=== PATIENT | female | born 1985 | race Caucasian/White ===

== ENCOUNTER 2020-08-08 19:41 | Emergency (ER) | payer OTHER ==
[2020-08-08] MEDS ORDERED: NA CHLORIDE 0.9% 1,000 ML ONE (20:44)
[2020-08-08] MEDS ORDERED: ONDANSETRON 4 MG/2 ML VIAL ONE (20:44)
[2020-08-08 20:48] LABS: Absolute Lymphocytes (CBC) 1.3 K/uL (0.7-4.9); Basophils % 0.4 % (0-1.3); Hematocrit 35.7 % (36.0-45.0); Lymphocytes % 13.6 % (15.3-44.8); MPV 9.2 fL (7.6-11.3); RBC Red Blood Cell Count 4.23 M/uL (3.86-4.86)
[2020-08-08 20:58] LABS: Protime INR 0.92
--- NOTE | 2020-08-08 20:59 | RAD REPORT ---
EXAM DESCRIPTION: Mari Single View08/08/2020 8:52 pm CLINICAL HISTORY: Abdominal pain COMPARISON: 2011 FINDINGS: The lungs appear clear of acute infiltrate. The heart is normal size IMPRESSION: No acute abnormalities displayed
[2020-08-08 21:08] LABS: ALT/SGPT 18 U/L (12-78); AST/SGOT 14 U/L (15-37); Alkaline Phosphatase 52 U/L (45-117); BUN Blood Urea Nitrogen 10 mg/dL (7-18); Bicarbonate 26 mmol/L (21-32); Bilirubin Direct < 0.1 mg/dL (0-0.2); Bilirubin Total 0.2 mg/dL (0.2-1.0); Glucose Level 95 mg/dL (74-106); Magnesium 2.4 mg/dL (1.8-2.4); NT PRO-BNP 67 pg/mL (<125); Potassium 4.3 mmol/L (3.5-5.1); Protein, Total 6.7 g/dL (6.4-8.2); Sodium Level 140 mmol/L (136-145); Troponin (Emerg Dept Use Only) < 0.02 ng/mL (0.0-0.045)
[2020-08-08 22:23] LABS: Urine Blood 3+ (Negative); Urine Glucose NEGATIVE (Negative); Urine Protein NEGATIVE (NEG); Urine Specific Gravity 1.015 (1.005-1.030); Urine Specific Gravity/Preg 1.015 (1.005-1.030)
[2020-08-08] MEDS ORDERED: METHYLPREDNISOLONE 125 MG INJ ONE (23:01)
[2020-08-08] MEDS ORDERED: FAMOTIDINE 20 MG/2 ML VIAL IV ONE (23:01)
[2020-08-08] MEDS ORDERED: DIPHENHYDRAMINE 50 MG/ML VIAL ONE (23:03)
--- NOTE | 2020-08-08 23:40 | ER ---
Nurse's Notes [facility] Name: Leilani De LaP az Age: 35 yrs Sex: Female : 1985 Arrival Date: 08/08/2020 Time: 19:42 Bed 15 Private MD: Diagnosis: Syncope and collapse;Rash, s/p IV contrast Presentation: 08/08 19:58 Chief complaint: Patient states: R lower abd pain for 1 day. Had surgery (tubal ll1 reversal) . States the pain came on suddenly today, and she passed out. No fall, ex caught her. Just not feeling right since incident. Coronavirus screen: Client denies travel out of the [place] in the last 14 days. At this time, the client does not indicate any symptoms associated with coronavirus-19. Ebola Screen: Patient denies travel to an Ebola-affected area in the 21 days before illness onset. Initial Sepsis Screen: Does the patient meet any 2 criteria? HR > 90 bpm. No. Patient's initial sepsis screen is negative. Does the patient have a suspected source of infection? Yes: Acute abdominal pain. Risk Assessment: Do you want to hurt yourself or someone else? Patient reports no desire to harm self or others. Onset of symptoms was August 08, 2020. 19:58 Method Of Arrival: Ambulatory ll1 19:58 Acuity: JACQUELINE 2 ll1 Historical: - Allergies: 20:02 No Known Allergies; ll1 - PMHx: 20:02 None; ll1 - PSHx: 20:02 Appendectomy; Cholecystectomy; right knee surgery; ovarian cyst removal; Tubal ll1 ligation; vertical sleeve; - Immunization history:: Flu vaccine is not up to date. - Social history:: Smoking status: Patient denies any tobacco usage or history of. Screenin:23 Abuse screen: Denies threats or abuse. Nutritional screening: No deficits noted. vg1 Tuberculosis screening: No symptoms or risk factors identified. Fall Risk Fall in past 12 months (25 points). No secondary diagnosis (0 pts). IV access (20 points). Ambulatory Aid- None/Bed Rest/Nurse Assist (0 pts). Gait- Normal/Bed Rest/Wheelchair (0 pts) Mental Status- Oriented to own ability (0 pts). Total Martínez Fall Scale indicates High Risk Score (45 or more points). Fall prevention measures have been instituted. Side Rails Up X 2 Placed Close to Nursing Station. Assessment: 20:20 General: Appears in no apparent distress. comfortable, Behavior is calm, cooperative. vg1 Pain: Complains of pain in right lower quadrant Pain currently is 6 out of 10 on a pain scale. Pain began 1 hour ago. Neuro: Level of Consciousness is awake, alert, obeys commands, Oriented to person, place, time, situation. Neuro: Reports dizziness, since today. Cardiovascular: Patient's skin is warm and dry. Respiratory: Airway is patent Respiratory effort is even, unlabored. GI: Reports nausea, Patient currently denies diarrhea, vomiting. : No signs and/or symptoms were reported regarding the genitourinary system. EENT: No signs and/or symptoms were reported regarding the EENT system. Derm: Surgical incision intact, no bleeding noted. Musculoskeletal: Circulation, motion, and sensation intact. 21:08 Reassessment: Critical results received from Rhea in outside lab, D dimer 1260. vg1 22:06 Reassessment: Patient appears in no apparent distress at this time. No changes from vg1 previously documented assessment. Patient and/or family updated on plan of care and expected duration. Pain level reassessed. Patient is alert, oriented x 3, equal unlabored respirations, skin warm/dry/pink. Vital Signs: 19:58 BP 100 / 69; Pulse 94; Resp 17; Temp 98.6; Pulse Ox 100% ; Weight 83.91 kg; Height 5 ll1 ft. 4 in. (162.56 cm); Pain 7/10; 20:23 BP 95 / 68; Pulse 88; Resp 16; Pulse Ox 100% on R/A; vg1 21:00 BP 100 / 40; Pulse 83; Resp 14; Pulse Ox 100% on R/A; vg1 22:00 BP 115 / 60; Pulse 84; Resp 16; Pulse Ox 100% on R/A; vg1 23:22 BP 93 / 58 Supine; Pulse 72; vg1 23:25 BP 98 / 67 Sitting; Pulse 74; vg1 23:28 BP 91 / 71 Standing; Pulse 90; vg1 19:58 Body Mass Index 31.75 (83.91 kg, 162.56 cm) ll1 ED Course: 19:42 Patient arrived in ED. cf2 20:01 Triage completed. ll1 20:02 Tucker Mireles MD is Attending Physician. 7 20:02 Arm band placed on. ll1 20:08 Elizabeth Davis RN is Primary Nurse. vg1 20:23 Patient has correct armband on for positive identification. Bed in low position. Call vg1 light in reach. Side rails up X 1. 20:30 Inserted saline lock: 20 gauge in right antecubital area, using aseptic technique. rv ,using aseptic technique. Completed by GABRIEL Vidal Blood collected. 20:41 EKG done. vg1 20:52 XRAY Chest (1 view) In Process Unspecified. EDMS 22:10 CT Head Brain wo Cont In Process Unspecified. EDMS 22:11 CT Abd/Pelvis - IV Contrast Only In Process Unspecified. EDMS 22:11 CT Chest For PE Angio In Process Unspecified. EDMS 23:56 No provider procedures requiring assistance completed. IV discontinued, intact, rv bleeding controlled, No redness/swelling at site. Pressure dressing applied. Administered Medications: 20:41 Drug: NS 0.9% 1000 ml Route: IV; Rate: 1000 ml; Site: right antecubital; vg1 23:57 Follow up: IV Status: Completed infusion; IV Intake: 1000ml rv 20:41 Drug: Zofran (Ondansetron) 4 mg Route: IVP; Site: right antecubital; vg1 22:19 Follow up: Response: No adverse reaction; Nausea is decreased vg1 22:55 Drug: Benadryl (diphenhydrAMINE) 50 mg Route: IVP; Site: right antecubital; vg1 23:57 Follow up: Response: No adverse reaction rv 22:55 Drug: SOLU-Medrol 125 mg Route: IVP; Site: right antecubital; vg1 23:56 Follow up: Response: No adverse reaction rv 22:55 Drug: Pepcid (famotidine) 20 mg Route: IVP; Site: right antecubital; vg1 23:56 Follow up: Response: No adverse reaction rv Intake: 23:57 IV: 1000ml; Total: 1000ml. rv Outcome: 23:39 Discharge ordered by . 7 23:56 Discharged to home ambulatory. rv 23:56 Condition: good 23:56 Discharge instructions given to patient, Instructed on discharge instructions, follow up and referral plans. medication usage, Demonstrated understanding of instructions, follow-up care, medications, Prescriptions given X 3. 23:57 Patient left the ED. rv Signatures: Dispatcher [employer] EDMS Enrrique Topete RN RN rv Ronaldo Hernandez cf2 Elizabeth Davis RN RN vg1 Farida Montanez RN RN ll1 Tucker Mireles MD MD mh7 Corrections: (The following items were deleted from the chart) 20:54 20:42 Inserted saline lock: 20 gauge in right antecubital area, using aseptic rv technique. ,using aseptic technique. Completed by GABRIEL Vidal Blood collected. vg1
--- NOTE | 2020-08-08 23:40 | EDPHYS ---
Physician Documentation [facility] Name: Leilani De La Paz Age: 35 yrs Sex: Female : 1985 Arrival Date: 08/08/2020 Time: 19:42 Bed 15 Private MD: ED Physician Tucker Mireles HPI: 08/08 20:43 This 35 yrs old Female presents to ER via Ambulatory with complaints of Post mh7 Surgical Pain, Passed Out Prior To Arrival. 20:43 The patient has experienced syncope, collapsed, lost consciousness. Onset: The mh7 symptoms/episode began/occurred just prior to arrival, today. Duration: This was a single episode, that lasted 1 minute(s). Context: the episode(s) was witnessed, by family, , occurred at home, occurred while the patient was standing, Just prior to the episode the patient experienced dizziness, lightheadedness. Associated injury: The patient did not suffer any apparent associated injury. Associated signs and symptoms: Pertinent positives: abdominal pain, dizziness, lightheadedness, nausea, Pertinent negatives: agitation, ataxia, blurred vision, chest pain, combativeness, confusion, diaphoresis, diarrhea, headache, numbness, palpitations, seizure, shortness of breath, tingling, vertigo, vomiting, weakness. Current symptoms: dizziness. States that she had reversal of tubal ligation 3 days ago. she has had some lower abdominal pain since then. Denies headache, chest pain, SOB, fever, cough, vomiting, diarrhea, dysuria, numbness/tingling, weakness. She admits to decreased appetite and fluid intake since procedure.. Historical: - Allergies: 20:02 No Known Allergies; ll1 - PMHx: 20:02 None; ll1 - PSHx: 20:02 Appendectomy; Cholecystectomy; right knee surgery; ovarian cyst removal; Tubal ll1 ligation; vertical sleeve; - Immunization history:: Flu vaccine is not up to date. - Social history:: Smoking status: Patient denies any tobacco usage or history of. ROS: 20:43 Constitutional: Negative for fever, chills, and weight loss, Eyes: Negative for injury, mh7 pain, redness, and discharge, ENT: Negative for injury, pain, and discharge, Neck: Negative for injury, pain, and swelling, Cardiovascular: Negative for chest pain, palpitations, and edema, Respiratory: Negative for shortness of breath, cough, wheezing, and pleuritic chest pain, Back: Negative for injury and pain, : Negative for injury, bleeding, discharge, and swelling, MS/Extremity: Negative for injury and deformity, Skin: Negative for injury, rash, and discoloration, Psych: Negative for depression, anxiety, suicide ideation, homicidal ideation, and hallucinations, Allergy/Immunology: Negative for hives, rash, and allergies, Endocrine: Negative for neck swelling, polydipsia, polyuria, polyphagia, and marked weight changes, Hematologic/Lymphatic: Negative for swollen nodes, abnormal bleeding, and unusual bruising. Exam: 20:43 Constitutional: This is a well developed, well nourished patient who is awake, alert, mh7 and in no acute distress. Head/Face: Normocephalic, atraumatic. Eyes: Pupils equal round and reactive to light, extra-ocular motions intact. Lids and lashes normal. Conjunctiva and sclera are non-icteric and not injected. Cornea within normal limits. Periorbital areas with no swelling, redness, or edema. Neck: Trachea midline, no thyromegaly or masses palpated, and no cervical lymphadenopathy. Supple, full range of motion without nuchal rigidity, or vertebral point tenderness. No Meningismus. Chest/axilla: Normal chest wall appearance and motion. Nontender with no deformity. No lesions are appreciated. Cardiovascular: Regular rate and rhythm with a normal S1 and S2. No gallops, murmurs, or rubs. Normal PMI, no JVD. No pulse deficits. Respiratory: Lungs have equal breath sounds bilaterally, clear to auscultation and percussion. No rales, rhonchi or wheezes noted. No increased work of breathing, no retractions or nasal flaring. 20:43 Back: No spinal tenderness. No costovertebral tenderness. Full range of motion. Skin: Warm, dry with normal turgor. Normal color with no rashes, no lesions, and no evidence of cellulitis. MS/ Extremity: Pulses equal, no cyanosis. Neurovascular intact. Full, normal range of motion. Neuro: Awake and alert, GCS 15, oriented to person, place, time, and situation. Cranial nerves II-XII grossly intact. Motor strength 5/5 in all extremities. Sensory grossly intact. Cerebellar exam normal. Normal gait. Psych: Awake, alert, with orientation to person, place and time. Behavior, mood, and affect are within normal limits. 20:43 Abdomen/GI: Inspection: scar(s), are noted in the suprapubic area, Bowel sounds: normal, in all quadrants, Palpation: mild abdominal tenderness, in the suprapubic area, mass, is not appreciated, rebound tenderness, is not appreciated, voluntary guarding, is not appreciated, involuntary guarding, is not appreciated, no appreciated organomegaly, Rectal exam: the exam is deferred, because of patient request, Indicators: McBurney's point is not tender, Orozco's sign is negative, Rovsing's sign is negative, Obturator sign is negative, Psoas sign is negative, Liver: no appreciated palpable abnormalities, Hernia: not appreciated. Vital Signs: 19:58 BP 100 / 69; Pulse 94; Resp 17; Temp 98.6; Pulse Ox 100% ; Weight 83.91 kg; Height 5 ll1 ft. 4 in. (162.56 cm); Pain 7/10; 20:23 BP 95 / 68; Pulse 88; Resp 16; Pulse Ox 100% on R/A; vg1 21:00 BP 100 / 40; Pulse 83; Resp 14; Pulse Ox 100% on R/A; vg1 22:00 BP 115 / 60; Pulse 84; Resp 16; Pulse Ox 100% on R/A; vg1 23:22 BP 93 / 58 Supine; Pulse 72; vg1 23:25 BP 98 / 67 Sitting; Pulse 74; vg1 23:28 BP 91 / 71 Standing; Pulse 90; vg1 19:58 Body Mass Index 31.75 (83.91 kg, 162.56 cm) ll1 MDM: 23:36 Differential Diagnosis: cardiac arrhythmia, drug effect, emotional response, idiopathic mh7 syncope, vasovagal episode, Dehydration. Data reviewed: vital signs, nurses notes, lab test result(s), cardiac enzymes, CBC, electrolytes, urinalysis, UPT: negative EKG, radiologic studies, CT scan, plain films. Data interpreted: Pulse oximetry: on room air is 100 %. Interpretation: normal. Counseling: I had a detailed discussion with the patient and/or guardian regarding: the historical points, exam findings, and any diagnostic results supporting the discharge/admit diagnosis, lab results, radiology results, to return to the emergency department if symptoms worsen or persist or if there are any questions or concerns that arise at home. Response to treatment: the patient's symptoms have resolved after treatment, the patient's blood pressure is in an acceptable range, mental status has returned to baseline, the patient no longer shows bradycardia, the patient is not short of breath, the patient is not tachycardic, the patient's pain is gone, the patient's temperature has normalized, the patient's condition has returned to base line, the patient is now symptom free. Refusal of service: The patient/guardian displays adequate decision making capability and despite a detailed discussion of alternatives, benefits, risks, and consequences refuses: Admission to the hospital for further work-up and treatment. 23:[address] [facility] 08/08 20:21 Order name: Basic Metabolic Panel [facility] 08/08 20:21 Order name: CBC with Diff [facility] 08/08 20:21 Order name: LFT's; Complete Time: 21: [facility] 08/08 20:21 Order name: Magnesium; Complete Time: 21: [facility] 08/08 20:21 Order name: NT PRO-BNP; Complete Time: 21:11 [facility] 08/08 20:21 Order name: PT-INR; Complete Time: 21: [facility] 08/08 20:21 Order name: Troponin (emerg Dept Use Only); Complete Time: 21:11 [facility] 08/08 20:21 Order name: Basic Metabolic Panel; Complete Time: 21:11 [facility] 08/08 20:21 Order name: CBC with Automated Diff; Complete Time: 20:50 [facility] 08/08 20:23 Order name: Type And Screen; Complete Time: 22:28 [facility] 08/08 20:51 Order name: D-Dimer; Complete Time: 21:11 [facility] 08/08 22:17 Order name: Urine Dipstick--Ancillary (enter results) [facility] 08/08 22:17 Order name: Urine --Ancillary (enter results) [facility] 08/08 22:18 Order name: Urine Dipstick-Ancillary [facility] 08/08 20:21 Order name: XRAY Chest (1 view); Complete Time: 21:11 [facility] 08/08 20:21 Order name: EKG; Complete Time: 20:22 [facility] 08/08 20:21 Order name: Cardiac monitoring; Complete Time: 20:41 [facility] 08/08 20:21 Order name: EKG - Nurse/Tech; Complete Time: 20:41 [facility] 08/08 20:21 Order name: IV Saline Lock; Complete Time: 20:41 [facility] 08/08 20:21 Order name: Labs collected and sent; Complete Time: 20:41 [facility] 08/08 20:21 Order name: O2 Per Protocol; Complete Time: 20:25 [facility] 08/08 20:21 Order name: O2 Sat Monitoring; Complete Time: 20:25 [facility] 08/08 20:23 Order name: CT Head Brain wo Cont [facility] 08/08 20:23 Order name: CT Abd/Pelvis - IV Contrast Only [facility] 08/08 21:10 Order name: CT Chest For PE Angio [facility] 08/08 20:21 Order name: Urine Dipstick-Ancillary (obtain specimen); Complete Time: 22:20 [facility] 08/08 20:21 Order name: Urine Test (obtain specimen); Complete Time: 22:20 [facility] Administered Medications: 20:41 Drug: NS 0.9% 1000 ml Route: IV; Rate: 1000 ml; Site: right antecubital; vg1 23:57 Follow up: IV Status: Completed infusion; IV Intake: 1000ml rv 20:41 Drug: Zofran (Ondansetron) 4 mg Route: IVP; Site: right antecubital; vg1 22:19 Follow up: Response: No adverse reaction; Nausea is decreased vg1 22:55 Drug: Benadryl (diphenhydrAMINE) 50 mg Route: IVP; Site: right antecubital; vg1 23:57 Follow up: Response: No adverse reaction rv 22:55 Drug: SOLU-Medrol 125 mg Route: IVP; Site: right antecubital; vg1 23:56 Follow up: Response: No adverse reaction rv 22:55 Drug: Pepcid (famotidine) 20 mg Route: IVP; Site: right antecubital; vg1 23:56 Follow up: Response: No adverse reaction rv Disposition: 08/08/20 23:39 Discharged to Home. Impression: Syncope and collapse, Rash, s/p IV contrast. - Condition is Stable. - Discharge Instructions: Drug Allergy, [id number], Syncope, [id number]. - Prescriptions for Benadryl 25 mg Oral Capsule - take 1 capsule by ORAL route every 6 hours As needed; 30 tablet. Pepcid 20 mg Oral Tablet - take 1 tablet by ORAL route every 12 hours for 5 days; 10 tablet. Prednisone 20 mg Oral Tablet - take 2 tablet by ORAL route once daily for 5 days; 10 tablet. - Medication Reconciliation Form, Thank You Letter, Antibiotic Education, Prescription Opioid Use form. - Follow up: Private Physician; When: 1 - 2 days; Reason: Worsening of condition, Recheck today's complaints, Continuance of care, Re-evaluation by your physician. - Problem is new. - Symptoms have improved. Signatures: Dispatcher [employer] EDEnrrique Singletary, RN RN rv Elizabeth Davis RN RN vg1 Farida Montanez RN RN ll1 Tucker Mireles MD MD 7 Corrections: (The following items were deleted from the chart) 23:40 23:39 08/08/2020 23:39 Discharged to Home. Impression: Syncope and collapse. Condition mh7 is Stable. Forms are Medication Reconciliation Form, Thank You Letter, Antibiotic Education, Prescription Opioid Use. Follow up: Private Physician; When: 1 - 2 days; Reason: Worsening of condition, Recheck today's complaints, Continuance of care, Re-evaluation by your physician. Problem is new. Symptoms have improved. 7 23:57 23:40 08/08/2020 23:39 Discharged to Home. Impression: Syncope and collapse; Rash, s/p rv IV contrast. Condition is Stable. Forms are Medication Reconciliation Form, Thank You Letter, Antibiotic Education, Prescription Opioid Use. Follow up: Private Physician; When: 1 - 2 days; Reason: Worsening of condition, Recheck today's complaints, Continuance of care, Re-evaluation by your physician. Problem is new. Symptoms have improved. 7
[2020-08-09 00:29] VITALS: TEMP 98.6; O2SAT 100
[2020-08-09 00:44] VITALS: BP 91/71
--- NOTE | 2020-08-09 11:27 | RAD REPORT ---
EXAM DESCRIPTION: CT - Head Brain Wo Cont - 08/09/2020 12:32 am CLINICAL HISTORY: SYNCOPE. TECHNIQUE: Axial, coronal, and sagittal images through the brain were performed in the absence of in travenous contrast. This exam was performed according to our departmental dose-optimization program w hich includes use of Automated Exposure Control, adjustment of the mA and/or kV according to patient size and/or use of iterative reconstruction technique. COMPARISON: None. FINDINGS: The brain parenchyma appears unremarkable. There is no intra-axial or extra-axial bleed se en. There is no mass or mass effect. The ventricles are normal in size shape and configuration. The o rbital contents appear unremarkable. The visualized paranasal sinuses and mastoid air cells are patent. No fracture is identified. IMPRESSION: No acute intracranial abnormality identified. Electronically signed by: Anuja Thomas MD 08/08/2020 10:19 PM CDT Due to temporary technical issues with the PACS/Fluency reporting system, reports are being signed by the in house radiologist without review as a courtesy to ensure prompt reporting. The interpreting r adiologist is fully responsible for the content of the report.
--- NOTE | 2020-08-09 11:28 | RAD REPORT ---
EXAM DESCRIPTION: CT - Abdomen Pelvis W Contrast - 08/09/2020 12:33 am CLINICAL HISTORY: S/p tubal ligation reversal;Abd pain. COMPARISON: None. TECHNIQUE: CT of the abdomen and pelvis was performed following intravenous administration of iodina harleen contrast. Arterial phase images through the abdomen and portal venous phase images through the ab domen and pelvis were obtained. Oral contrast was not administered. Axial, coronal, and sagittal soft tissue window reconstructions were created and sent to PACS. This exam was performed according to our departmental dose-optimization program, which includes autom ated exposure control, adjustment of the mA and/or kV according to patient size and/or use of iterati ve reconstruction technique. FINDINGS: Thoracic: No significant abnormality. Hepatobiliary: No concerning hepatic lesion identified. The hepatic and portal veins are patent. The gallbladder is surgically absent. No biliary ductal dilatation. Pancreas: Unremarkable. Spleen: Unremarkable. Gastrointestinal: Prior gastric sleeve surgery. No evidence of bowel obstruction or perienteric infla mmation. The appendix is surgically absent. Small to moderate amount of fecal material throughout the colon. Adrenals: No abnormality identified in either adrenal gland. Renal: No concerning parenchymal abnormality in either kidney. No hydronephrosis or urolithiasis. Bladder/Reproductive: Unremarkable appearance of the urinary bladder by CT technique. Grossly unremar kable appearance of the ovaries, with functional cysts noted in the right ovary. Heterogeneous uterus , suspected to contain multiple fibroids measuring up to 3.3 cm in size. Suspected trace free fluid i n the right adnexa. Vascular/Lymphatics: No lymphadenopathy identified by CT size criteria. Abdominal aorta is normal in caliber. The major visceral vessels are patent. Musculoskeletal: No concerning osseous lesion identified. Fluid / peritoneum: No significant free fluid. No free intraperitoneal air identified. IMPRESSION 1. Grossly unremarkable CT appearance of the ovaries, with suspected trace free fluid i n the right adnexa. Fibroid uterus. Consider correlation with pelvic ultrasound, if clinically necess sara. 2. No evidence of bowel obstruction or perienteric inflammation. 3. Prior appendectomy, cholecystectomy, and gastric sleeve surgery. Electronically signed by: Anuja Thomas MD 08/08/2020 10:25 PM CDT Due to temporary technical issues with the PACS/Fluency reporting system, reports are being signed by the in house radiologist without review as a courtesy to ensure prompt reporting. The interpreting r adiologist is fully responsible for the content of the report.
--- NOTE | 2020-08-09 11:30 | RAD REPORT ---
EXAM DESCRIPTION: CT - Chest For Pe Angio - 08/09/2020 12:34 am CLINICAL HISTORY: Syncope. COMPARISON: None. TECHNIQUE: CTA of the chest was performed following intravenous administration of iodinated contrast . Axial soft tissue and bone window, and coronal and sagittal soft tissue window reconstructions were created and sent to PACS. 3D postprocessing was performed on an independent workstation, with images sent to PACS for subsequen t review. This exam was performed according to our departmental dose-optimization program, which includes autom ated exposure control, adjustment of the mA and/or kV according to patient size and/or use of iterati ve reconstruction technique. FINDINGS: Vascular: The pulmonary arteries are adequately opacified to the lobar level. Streak artif act obscures evaluation at the segmental and subsegmental levels, particularly on the right. No CT ev idence of central acute pulmonary thromboembolism. No evidence of aortic aneurysm or dissection. Lungs and pleura: Slightly motion degraded. No pulmonary consolidation. No pleural effusion. No pneum othorax. Mediastinum and neck: No mediastinal lymphadenopathy by CT size criteria. Unremarkable appearance of the thyroid gland. Cardiac: No cardiomegaly or pericardial effusion. Abdomen: Please see the separate report for findings below the hemidiaphragm. Musculoskeletal: No concerning osseous abnormality. IMPRESSION: 1. No CTA evidence of central acute pulmonary thromboembolism. Streak artifact obscure s evaluation at the segmental and subsegmental levels. 2. No pulmonary consolidation or pleural effusions. Electronically signed by: Anuja Thomas MD 08/08/2020 10:28 PM CDT Due to temporary technical issues with the PACS/Fluency reporting system, reports are being signed by the in house radiologist without review as a courtesy to ensure prompt reporting. The interpreting r adiologist is fully responsible for the content of the report.
== END 2020-08-08 23:57 | disposition home or self-care (01) ==
LOC: ER 19:41
DX: R55 Syncope and collapse (principal); R21 Rash and other nonspecific skin eruption; R10.30 Lower abdominal pain, unspecified; Z98.890 Other specified postprocedural states
CPT/HCPCS: 96361; 93005; 85025; 80048; 36415; 86900; 83735; 86850; 81025; 85610; 86901; 85379; 80076; 81003; 84484; 83880; 70450; 71275; 74177; 71045; 96375; 96374; 99284; Q9967; J1200; J7030; J2930; J2405

== ENCOUNTER 2020-10-26 13:17 | Emergency (ER) | payer OTHER ==
[2020-10-26 13:49] LABS: Urine Blood Trace-intact (Negative); Urine Glucose Negative (Negative); Urine Protein Negative (Negative); Urine Specific Gravity >=1.030 (1.005-1.030)
[2020-10-26 14:37] LABS: Urine Specific Gravity/Preg >1.030 (1.005-1.030)
[2020-10-26 14:38] LABS: Absolute Lymphocytes (CBC) 2.5 K/uL (0.7-4.9); Basophils % 0.4 % (0-1.3); Hematocrit 34.8 % (36.0-45.0); Lymphocytes % 25.7 % (15.3-44.8); RBC Red Blood Cell Count 4.22 M/uL (3.86-4.86)
[2020-10-26 14:51] LABS: Potassium 3.7 mmol/L (3.5-5.1)
[2020-10-26] MEDS ORDERED: NA CHLORIDE 0.9% 1,000 ML ONE (14:51)
--- NOTE | 2020-10-26 15:38 | RAD REPORT ---
EXAM DESCRIPTION: US - Transvaginal OB - 10/26/2020 2:54 pm CLINICAL HISTORY: with vaginal bleeding and pelvic pain COMPARISON: None. FINDINGS: The uterus measures 8 x 6 x 7 centimeters. The endometrial stripe measures 13 millimeters . A gestational sac is not seen. Ovaries are normal in size and echotexture.. The right and left adnexa are unremarkable No significant free fluid IMPRESSION: Nonvisualization of a gestational sac within the endometrium. These findings could represent an early intrauterine in which the gestational sac is not se en. and even an ectopic can also result in this appearance. This all should be cor related clinically and with serial beta HCG levels. Followup endovaginal sonogram in 1 week recommend ed
--- NOTE | 2020-10-26 15:59 | ER ---
Nurse's Notes [facility] Name: Leilani De La Paz Age: 35 yrs Sex: Female : 1985 Arrival Date: 10/26/2020 Time: 13:18 Bed 26 Private MD: Diagnosis: Threatened Presentation: 10/26 13:24 Chief complaint: Patient states: "I had a tubal reversal at the end of July. took a jd3 test this past Sunday, but I am having some bleeding. I am also having some mild cramping. spotting since Sunday.". Coronavirus screen: At this time, the client does not indicate any symptoms associated with coronavirus-19. Ebola Screen: Patient negative for fever greater than or equal to 101.5 degrees Fahrenheit, and additional compatible Ebola Virus Disease symptoms. Initial Sepsis Screen: Does the patient meet any 2 criteria? No. Patient's initial sepsis screen is negative. Does the patient have a suspected source of infection? No. Patient's initial sepsis screen is negative. Risk Assessment: Do you want to hurt yourself or someone else? Patient reports no desire to harm self or others. Onset of symptoms was October 23, 2020. 13:24 Method Of Arrival: Ambulatory jd3 13:24 Acuity: JACQUELINE 3 jd3 Triage Assessment: 16:43 General: Behavior is calm, cooperative, appropriate for age, quiet. 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 - Social history:: Smoking status: Patient denies any tobacco usage or history of. Screenin:02 Abuse screen: Denies threats or abuse. Denies injuries from another. Nutritional kg screening: No deficits noted. On no prescribed diet Difficulty chewing/swallowing? No. Tuberculosis screening: No symptoms or risk factors identified. Fall Risk None identified. No fall in past 12 months (0 pts). No secondary diagnosis (0 pts). IV access (20 points). Ambulatory Aid- None/Bed Rest/Nurse Assist (0 pts). Gait- Normal/Bed Rest/Wheelchair (0 pts) Mental Status- Oriented to own ability (0 pts). Total Martínez Fall Scale indicates No Risk (0-24 pts). Assessment: 13:57 General: Appears in no apparent distress. Pain: Complains of pain in suprapubic area kg Pain currently is 1 out of 10 on a pain scale. at worst was 2 out of 10 on a pain scale. level that patient reports is acceptable is 2 out of 10 on a pain scale. Quality of pain is described as aching, crampy, Pain began 2-3 days ago. Neuro: No deficits noted. Cardiovascular: No deficits noted. Respiratory: No deficits noted. GI: No deficits noted. GI: Reports lower abdominal pain, cramping, Vaginal spotting for the past 3-4 days. GI:. : No deficits noted. Last void was October 26, 2020. Reports cramping, vaginal bleeding that is spotty. EENT: No deficits noted. Derm: No deficits noted. Musculoskeletal: No deficits noted. 14:15 Reassessment: Pt went to ultrasound. . kg 15:00 Reassessment: Pt returned from ultrasound.. kg Vital Signs: 13:28 BP 109 / 49; Pulse 96; Resp 16 S; Temp 98.7(TE); Pulse Ox 100% on R/A; Weight 83.91 kg jd3 (R); Height 5 ft. 3 in. (160.02 cm) (R); Pain 2/10; 15:06 BP 106 / 61 LA Supine (auto/lg); Pulse 68 LA; kg 15:08 BP 95 / 74 LA Sitting (auto/lg); Pulse 71; kg 15:10 BP 99 / 76 LA Standing (auto/lg); Pulse 95; kg 16:00 BP 131 / 98; Pulse 74; Resp 20; Pulse Ox 100% on R/A; kg 16:30 BP 123 / 72; Pulse 68; Resp 20; Pulse Ox 98% on R/A; kg 13:28 Body Mass Index 32.77 (83.91 kg, 160.02 cm) [facility] ED Course: 13:18 Patient arrived in ED. am2 13:26 Triage completed. jd3 13:29 Arm band placed on. jd3 13:34 Martell Alcaraz PA is PHCP. cp 13:34 Martell Boucher MD is Attending Physician. cp 13:39 Latoya Rodríguez, RN is Primary Nurse. kg 14:00 Inserted saline lock: 20 gauge in right antecubital area, using aseptic technique. kg 14:03 Patient has correct armband on for positive identification. Placed in gown. Bed in low kg position. Call light in reach. Side rails up X2. 14:50 US Transvaginal Ob: reports reversal tubal ligation July 2020 In Process Unspecified. EDMS 16:42 No provider procedures requiring assistance completed. IV discontinued, intact, kg bleeding controlled, No redness/swelling at site. Pressure dressing applied. Administered Medications: 15:17 Drug: NS 0.9% 1000 ml Route: IV; Rate: 1 bolus; Site: right antecubital; kg 16:40 Follow up: Response: No adverse reaction; IV Status: Completed infusion; IV Intake: kg 1000ml Intake: 16:40 IV: 1000ml; Total: 1000ml. kg Outcome: 15:59 Discharge ordered by MD. cp 16:43 Discharged to home ambulatory, with family. kg 16:43 Condition: improved 16:43 Discharge instructions given to patient, family, Instructed on discharge instructions, follow up and referral plans. Demonstrated understanding of instructions, follow-up care, medications, Prescriptions given X 2. 16:43 Patient left the ED. kg Signatures: Dispatcher [employer] EDKY Martell Alcaraz PA PA cp Rosalina Harding am2 Tee Brannon RN RN jLatoya Troncoso, RN RN kg
--- NOTE | 2020-10-26 15:59 | EDPHYS ---
Physician Documentation [facility] Name: Leilani De La Paz Age: 35 yrs Sex: Female : 1985 Arrival Date: 10/26/2020 Time: 13:18 Bed 26 Private MD: JEWEL Physician Martell Boucher HPI: 10/26 13:58 This 35 yrs old Female presents to ER via Ambulatory with complaints of cp Vaginal Bleeding, Abdominal Cramping. 13:58 The patient presents with vaginal bleeding that is spotting. Onset: The cp symptoms/episode began/occurred last week. Associated signs and symptoms: Pertinent positives: cramping. 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 - Social history:: Smoking status: Patient denies any tobacco usage or history of. ROS: 14:05 Constitutional: Negative for body aches, chills, fever, poor PO intake. cp 14:05 Eyes: Negative for injury, pain, redness, and discharge. cp 14:05 Cardiovascular: Negative for chest pain, edema, palpitations. 14:05 Respiratory: Negative for cough, shortness of breath, wheezing. 14:05 Abdomen/GI: Positive for abdominal cramps, Negative for nausea, vomiting, and diarrhea. 14:05 : Positive for vaginal bleeding, Negative for urinary symptoms. 14:05 Neuro: Negative for altered mental status, headache, syncope, weakness. 14:05 All other systems are negative. Exam: 14:10 Constitutional: The patient appears in no acute distress, alert, awake, comfortable, cp non-toxic, well developed, well nourished. 14:10 Head/Face: Normocephalic, atraumatic. cp 14:10 Eyes: Periorbital structures: appear normal, Conjunctiva: normal, no exudate, no injection, Sclera: no appreciated abnormality, Lids and lashes: appear normal, bilaterally. 14:10 ENT: External ear(s): are unremarkable, Nose: is normal, Mouth: Lips: moist, Oral mucosa: moist, Posterior pharynx: Airway: no evidence of obstruction, patent. 14:10 Chest/axilla: Inspection: normal, Palpation: is normal, no crepitus, no tenderness. 14:10 Cardiovascular: Rate: normal, Rhythm: regular. 14:10 Respiratory: the patient does not display signs of respiratory distress, Respirations: normal, no use of accessory muscles, no retractions, labored breathing, is not present, Breath sounds: are clear throughout, no decreased breath sounds. 14:10 Abdomen/GI: Inspection: abdomen appears normal, Palpation: abdomen is soft and non-tender, in all quadrants. 14:10 Back: CVA tenderness, is absent. Vital Signs: 13:28 BP 109 / 49; Pulse 96; Resp 16 S; Temp 98.7(TE); Pulse Ox 100% on R/A; Weight 83.91 kg jd3 (R); Height 5 ft. 3 in. (160.02 cm) (R); Pain 2/10; 15:06 BP 106 / 61 LA Supine (auto/lg); Pulse 68 LA; kg 15:08 BP 95 / 74 LA Sitting (auto/lg); Pulse 71; kg 15:10 BP 99 / 76 LA Standing (auto/lg); Pulse 95; kg 16:00 BP 131 / 98; Pulse 74; Resp 20; Pulse Ox 100% on R/A; kg 16:30 BP 123 / 72; Pulse 68; Resp 20; Pulse Ox 98% on R/A; kg 13:28 Body Mass Index 32.77 (83.91 kg, 160.02 cm) jd3 MDM: 13:41 Patient medically screened. cp 15:58 Data reviewed: vital signs, nurses notes, lab test result(s), radiologic studies, cp ultrasound, I have discussed the patient's presentation/case with the attending Emergency Department Physician; and as a result, I will discharge patient. 10/26 13:49 Order name: Urine Dipstick-Ancillary; Complete Time: 13:52 EDMS 10/26 14:55 Interpretation: Normal except: UKET Trace; UBLD Trace-intact; UESTR Trace. cp 10/26 13:52 Order name: Quantitative Hcg; Complete Time: 14:54 10/26 14:54 Interpretation: HCGQ 69; Reviewed. 10/26 13:52 Order name: Abo/rh Typing; Complete Time: 15:56 10/26 15:56 Interpretation: Reviewed. 10/26 13:52 Order name: Basic Metabolic Panel; Complete Time: 14:54 10/26 14:54 Interpretation: Normal except: CL 111; GFR 88. 10/26 13:52 Order name: CBC with Diff; Complete Time: 14:54 10/26 14:54 Interpretation: Normal except: HGB 11.2; HCT 34.8; MCH 26.5. 10/26 13:57 Order name: Urine --Ancillary (enter results); Complete Time: 14:54 nh 10/26 13:41 Order name: Orthostatics; Complete Time: 15:44 10/26 13:52 Order name: Urine Test (obtain specimen); Complete Time: 13:57 10/26 13:52 Order name: IV Saline Lock; Complete Time: 15:43 10/26 13:52 Order name: Labs collected and sent; Complete Time: 15:43 10/26 13:52 Order name: NPO; Complete Time: 15:44 10/26 13:52 Order name: Urine Dipstick-Ancillary (obtain specimen); Complete Time: 13:57 10/26 14:12 Order name: US Transvaginal Ob: reports reversal tubal ligation July 2020; Complete cp Time: 15:49 Administered Medications: 15:17 Drug: NS 0.9% 1000 ml Route: IV; Rate: 1 bolus; Site: right antecubital; kg 16:40 Follow up: Response: No adverse reaction; IV Status: Completed infusion; IV Intake: kg 1000ml Disposition: 10/27 08:02 Co-signature as Attending Physician, Martell Boucher MD I agree with the assessment and darlin plan of care. Disposition: 10/26/20 15:59 Discharged to Home. Impression: Threatened . - Condition is Stable. - Discharge Instructions: Threatened Miscarriage, Vaginal Bleeding During , First Trimester, Pelvic Rest. - Prescriptions for Vitamin 27- 0.8 mg Oral Tablet - take 1 tablet by ORAL route once daily; 60 tablet. Macrobid 100 mg Oral Capsule - take 1 capsule by ORAL route every 12 hours for 7 days; 14 capsule. - Medication Reconciliation Form, Thank You Letter, Antibiotic Education, Prescription Opioid Use form. - Follow up: Private Physician; When: 2 - 3 days; Reason: Repeat Beta-HCG (48 Hours), repeat ultrasound next 1-2 weeks. - Problem is new. - Symptoms have improved. Signatures: Dispatcher [employer] EDSD Martell Boucher MD MD cha Page, Corey, PA PA cp Davies, Jonathon, RN RN jLatoya Troncoso RN RN kg Corrections: (The following items were deleted from the chart) 10/26 16:43 15:59 10/26/2020 15:59 Discharged to Home. Impression: Threatened . Condition kg is Stable. Forms are Medication Reconciliation Form, Thank You Letter, Antibiotic Education, Prescription Opioid Use. Follow up: Private Physician; When: 2 - 3 days; Reason: Repeat Beta-HCG (48 Hours), repeat ultrasound next 1-2 weeks. Problem is new. Symptoms have improved. cp
[2020-10-26 16:58] VITALS: TEMP 98.7
[2020-10-26 17:05] VITALS: BP 123/72; O2SAT 98
== END 2020-10-26 16:43 | disposition home or self-care (01) ==
LOC: ER 13:17
DX: O20.0 Threatened abortion (principal); Z3A.00 Weeks of gestation of pregnancy not specified
CPT/HCPCS: 85025; 80048; 36415; 86900; 81025; 86901; 84702; 81003; 76817; J7030; 96360; 99284

== ENCOUNTER 2020-10-31 08:11 | Emergency (ER) | payer OTHER ==
[2020-10-31 09:09] LABS: Absolute Lymphocytes (CBC) 1.8 K/uL (0.7-4.9); Basophils % 0.9 % (0-1.3); Hematocrit 33.3 % (36.0-45.0); Lymphocytes % 31.8 % (15.3-44.8); MPV 8.7 fL (7.6-11.3); RBC Red Blood Cell Count 4.06 M/uL (3.86-4.86)
[2020-10-31 09:27] LABS: BUN Blood Urea Nitrogen 10 mg/dL (7-18); Bicarbonate 24 mmol/L (21-32); Glucose Level 89 mg/dL (74-106); HCG, Quantitative 745 mIU/mL (1-3); Potassium 3.9 mmol/L (3.5-5.1); Sodium Level 140 mmol/L (136-145)
--- NOTE | 2020-10-31 09:49 | EDPHYS ---
Physician Documentation [facility] Name: Leilani De La Paz Age: 35 yrs Sex: Female : 1985 Arrival Date: 10/31/2020 Time: 08:15 Bed 15 Private MD: ED Physician Sho Deluna HPI: 10/31 08:42 This 35 yrs old Female presents to ER via Ambulatory with complaints of ma2 Vaginal Bleeding. 08:42 Onset: The symptoms/episode began/occurred gradually, 1 week(s) ago. Associated signs ma2 and symptoms: Pertinent negatives: diarrhea, hematuria, vaginal bleeding. Severity of symptoms: At their worst the symptoms were very mild, in the emergency department the symptoms have resolved. The patient has experienced similar episodes in the past. 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 - Social history:: Smoking status: Patient denies any tobacco usage or history of. - Family history:: not pertinent. ROS: 08:42 Positive for vaginal bleeding, missed period. ma2 08:42 Constitutional: Negative for fever, chills, and weight loss. 08:42 All other systems are negative. Exam: 08:42 Constitutional: This is a well developed, well nourished patient who is awake, alert, ma2 and in no acute distress. Chest/axilla: Normal chest wall appearance and motion. Nontender with no deformity. No lesions are appreciated. Cardiovascular: Regular rate and rhythm with a normal S1 and S2. No gallops, murmurs, or rubs. Normal PMI, no JVD. No pulse deficits. Respiratory: Lungs have equal breath sounds bilaterally, clear to auscultation and percussion. No rales, rhonchi or wheezes noted. No increased work of breathing, no retractions or nasal flaring. Abdomen/GI: Soft, non-tender, with normal bowel sounds. No distension or tympany. No guarding or rebound. No evidence of tenderness throughout. MS/ Extremity: Pulses equal, no cyanosis. Neurovascular intact. Full, normal range of motion. Neuro: Awake and alert, GCS 15, oriented to person, place, time, and situation. Cranial nerves II-XII grossly intact. Motor strength 5/5 in all extremities. Sensory grossly intact. Cerebellar exam normal. Normal gait. Vital Signs: 08:30 BP 100 / 63; Pulse 78; Resp 16; Pulse Ox 98% on R/A; Weight 83.91 kg; Height 5 ft. 3 ss in. (160.02 cm); Pain /10; 09:43 BP 94 / 66; Pulse 78; Resp 16 S; Pulse Ox 100% on R/A; jd3 08:30 Body Mass Index 32.77 (83.91 kg, 160.02 cm) ss MDM: 08:18 Patient medically screened. [facility] 08:42 Differential diagnosis: cervicitis, dysmenorrhea, menometrorrhagia, nonspecific ma2 abdominal pain. 09:48 Data reviewed: vital signs, nurses notes. Counseling: I had a detailed discussion with [facility] the patient and/or guardian regarding: the historical points, exam findings, and any diagnostic results supporting the discharge/admit diagnosis, the presence of at least one elevated blood pressure reading (>120/80) during this emergency department visit, the need for outpatient follow up. Response to treatment: the patient's symptoms have markedly improved after treatment. 10/31 08:16 Order name: Quantitative Hcg [facility] 10/31 08:16 Order name: Abo/rh Typing; Complete Time: 09:51 [facility] 10/31 08:16 Order name: Basic Metabolic Panel [facility] 10/31 08:16 Order name: CBC with Diff; Complete Time: 09:23 [facility] 10/31 08:17 Order name: HCG, Quantitative; Complete Time: 09:40 EDMS 10/31 08:17 Order name: Basic Metabolic Panel; Complete Time: 09:40 EDMS 10/31 08:16 Order name: IV Saline Lock; Complete Time: 09:01 [facility] 10/31 08:16 Order name: Labs collected and sent; Complete Time: 09:01 [facility] 10/31 08:16 Order name: NPO; Complete Time: 08:42 ma2 Administered Medications: No medications were administered Disposition: 10/31/20 09:49 Discharged to Home. Impression: Lower abdominal pain, unspecified - in 1st trimester . - Condition is Stable. - Discharge Instructions: Abdominal Pain During , [id number]. - Medication Reconciliation Form, Thank You Letter, Antibiotic Education, Prescription Opioid Use form. - Follow up: Private Physician; When: Tomorrow; Reason: If symptoms return, Continuance of care. Signatures: Dispatcher [employer] EDFabiola Persaud RN RN ss Davies, Jonathon, RN RN Sho Lai MD MD ma2 Corrections: (The following items were deleted from the chart) 09:49 09:49 10/31/2020 09:49 Discharged to Home. Impression: Lower abdominal pain, ma2 unspecified. Condition is Stable. Forms are Medication Reconciliation Form, Thank You Letter, Antibiotic Education, Prescription Opioid Use. Follow up: Private Physician; When: Tomorrow; Reason: If symptoms return, Continuance of care. ma2 10:01 09:49 10/31/2020 09:49 Discharged to Home. Impression: Lower abdominal pain, jd3 unspecified - in 1st trimester . Condition is Stable. Forms are Medication Reconciliation Form, Thank You Letter, Antibiotic Education, Prescription Opioid Use. Follow up: Private Physician; When: Tomorrow; Reason: If symptoms return, Continuance of care. ma2
--- NOTE | 2020-10-31 09:49 | ER ---
Nurse's Notes [facility] Name: Leilani De La Paz Age: 35 yrs Sex: Female : 1985 Arrival Date: 10/31/2020 Time: 08:15 Bed 15 Private MD: Diagnosis: Lower abdominal pain, unspecified-in 1st trimester Presentation: 10/31 08:30 Chief complaint: Patient states: Pt is here to have her HCG level rechecked today and ss possibly an ultrasound after recent visit to the ER after having vaginal spotting. Pt reports that she should be 4 weeks and 1 day . Coronavirus screen: Client denies travel out of the [place] in the last 14 days. Ebola Screen: Patient denies exposure to infectious person. Patient denies travel to an Ebola-affected area in the 21 days before illness onset. Initial Sepsis Screen: Does the patient meet any 2 criteria? No. Patient's initial sepsis screen is negative. Does the patient have a suspected source of infection? No. Patient's initial sepsis screen is negative. Risk Assessment: Do you want to hurt yourself or someone else? Patient reports no desire to harm self or others. Onset of symptoms is unknown. 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 - Social history:: Smoking status: Patient denies any tobacco usage or history of. - Family history:: not pertinent. Screenin:30 Abuse screen: Denies threats or abuse. Nutritional screening: No deficits noted. jd3 Tuberculosis screening: No symptoms or risk factors identified. Fall Risk Ambulatory Aid- None/Bed Rest/Nurse Assist (0 pts). Gait- Normal/Bed Rest/Wheelchair (0 pts) Mental Status- Oriented to own ability (0 pts). Total Martínez Fall Scale indicates No Risk (0-24 pts). Assessment: 08:29 General: Appears in no apparent distress. comfortable, Behavior is calm, cooperative, jd3 appropriate for age. Pain: Complains of pain in suprapubic area Quality of pain is described as aching. Neuro: Level of Consciousness is awake, alert, obeys commands, Oriented to person, place, time, situation. Cardiovascular: Denies chest pain, Capillary refill < 3 seconds Patient's skin is warm and dry. Respiratory: Airway is patent Respiratory effort is even, unlabored, Respiratory pattern is regular, symmetrical, Denies cough, shortness of breath. GI: No signs and/or symptoms were reported involving the gastrointestinal system. : Reports cramping, vaginal bleeding that is pink noted when wiping. EENT: No signs and/or symptoms were reported regarding the EENT system. Derm: Skin is intact, Skin is dry, Skin is normal, Skin temperature is warm. Musculoskeletal: Circulation, motion, and sensation intact. Range of motion: intact in all extremities. 09:02 Reassessment: Patient appears in no apparent distress at this time. No changes from jd3 previously documented assessment. Patient and/or family updated on plan of care and expected duration. Pain level reassessed. Patient is alert, oriented x 3, equal unlabored respirations, skin warm/dry/pink. 09:42 Reassessment: Patient appears in no apparent distress at this time. No changes from jd3 previously documented assessment. Patient and/or family updated on plan of care and expected duration. Pain level reassessed. Patient is alert, oriented x 3, equal unlabored respirations, skin warm/dry/pink. Vital Signs: 08:30 BP 100 / 63; Pulse 78; Resp 16; Pulse Ox 98% on R/A; Weight 83.91 kg; Height 5 ft. 3 ss in. (160.02 cm); Pain 05/23; 09:43 BP 94 / 66; Pulse 78; Resp 16 S; Pulse Ox 100% on R/A; jd3 08:30 Body Mass Index 32.77 (83.91 kg, 160.02 cm) ss ED Course: 08:15 Patient arrived in ED. mr 08:16 Sho Deluna MD is Attending Physician. ma2 08:28 Tee Brannon RN is Primary Nurse. jd3 08:30 Patient has correct armband on for positive identification. Placed in gown. Bed in low jd3 position. Call light in reach. Side rails up X 1. Pulse ox on. NIBP on. 08:31 Arm band placed on. jd3 08:35 Triage completed. 09:01 Inserted saline lock: 22 gauge in right antecubital area, using aseptic technique. jd3 Blood collected. 10:00 No provider procedures requiring assistance completed. IV discontinued, intact, jd3 bleeding controlled, No redness/swelling at site. Pressure dressing applied. Administered Medications: No medications were administered Outcome: 09:49 Discharge ordered by . pedro 10:01 Discharged to home ambulatory. jd3 10:01 Condition: stable 10:01 Discharge instructions given to patient, Instructed on discharge instructions, follow up and referral plans. Demonstrated understanding of instructions, follow-up care. 10:01 Patient left the ED. jd3 Signatures: Junie Cid Shelby, RN RN Tee Valdez RN RN jSho Kim MD MD ma2
[2020-10-31 10:34] VITALS: BP 94/66; O2SAT 100
== END 2020-10-31 10:01 | disposition home or self-care (01) ==
LOC: ER 08:11
DX: O26.891 Other specified pregnancy related conditions, first trimester (principal); Z3A.00 Weeks of gestation of pregnancy not specified
CPT/HCPCS: 36415; 80048; 84702; 85025; 86900; 86901; 99283

== ENCOUNTER 2022-05-11 15:24 | Emergency (ER) | payer OTHER ==
--- NOTE | 2022-05-11 16:22 | RAD REPORT ---
EXAM DESCRIPTION: US - 1St Trimest Single 1St Fetus - 05/11/2022 4:11 pm CLINICAL HISTORY: VAGINAL BLEEDING COMPARISON: Abdomen Pelvis W Contrast dated 08/08/2020 FINDINGS: Single IUP identified. Positive heart tones. The heart rate is estimated at 16 6 beats per minute. The crown-rump length measures 5.9 cm which is consistent with 12 week 2 day with TERESO of 11/21/2022. The right ovary measures 2.9 x 1 x 2.1 cm with volume of 3.1 cc. The left ovary measures 3.7 x 2.3 x 2.7 cm with volume of 12.4 cc. Bilateral ovarian blood flow is present. Left adnexal cyst measures 1. 9 cm is likely physiologic. Peripherally calcified mass with shadowing in the uterus likely representing a partially calcified fi broid. IMPRESSION: Single IUP with positive heart tones measuring 12 week 2 day with TERESO of 3. Bilateral ovarian blood flow.
[2022-05-11 16:47] LABS: Absolute Lymphocytes (CBC) 2.1 K/uL (0.7-4.9); Hematocrit 32.7 % (36.0-45.0); Lymphocytes % 17.8 % (15.3-44.8); MCV 72.1 fL (80-100); MPV 7.7 fL (7.6-11.3); RBC Red Blood Cell Count 4.54 M/uL (3.86-4.86)
[2022-05-11 16:52] LABS: Potassium 3.7 mmol/L (3.5-5.1)
[2022-05-11 17:05] LABS: Urine Blood 3+ (Negative); Urine Glucose Negative (Negative); Urine Protein 1+ (Negative); Urine Specific Gravity >=1.030 (1.005-1.030); Urine pH 5.5 (5.0-7.0)
[2022-05-11 17:29] LABS: Urine Specific Gravity/Preg >1.030 (1.005-1.030)
--- NOTE | 2022-05-11 17:31 | ER ---
Nurse's Notes [facility] Name: Leilani De La Paz Age: 36 yrs Sex: Female : 1985 Arrival Date: 05/11/2022 Time: 15:26 Bed DIS4 Private MD: Diagnosis: Threatened ;UTI/ Urinary tract infection, site not specified Presentation: 05/11 15:42 Chief complaint: Patient states: VAGINAL BLEEDING, HEAVY, WHILE 13 WK . bp Coronavirus screen: At this time, the client does not indicate any symptoms associated with coronavirus-19. Ebola Screen: No symptoms or risks identified at this time. Initial Sepsis Screen: Does the patient meet any 2 criteria? No. Patient's initial sepsis screen is negative. Does the patient have a suspected source of infection? No. Patient's initial sepsis screen is negative. Risk Assessment: Do you want to hurt yourself or someone else? Patient reports no desire to harm self or others. Note HEAVY BLEEDING, \R\1 PAD/HR. Onset of symptoms was May 11, 2022 at 14:30. 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 - Social history:: Smoking status: Patient denies any tobacco usage or history of. Assessment: 17:55 Reassessment: PT is awaiting for HCG to result. IV fluids infusing. ss 18:38 General: Appears in no apparent distress. Behavior is calm. Neuro: Level of ss Consciousness is awake, alert, obeys commands, Oriented to person, place, time, situation. Cardiovascular: Capillary refill < 3 seconds is brisk in bilateral fingers. Respiratory: Airway is patent Respiratory effort is even, unlabored, Respiratory pattern is regular, symmetrical. Derm: Skin is intact, is healthy with good turgor, Skin is pink, warm \T\ dry. normal. Vital Signs: 15:42 BP 104 / 63; Pulse 94; Resp 16; Temp 97.5; Pulse Ox 100% ; Weight 81.65 kg; Height 5 bp ft. 3 in. (160.02 cm); 15:42 Body Mass Index 31.89 (81.65 kg, 160.02 cm) bp ED Course: 15:26 Patient arrived in ED. jj6 15:29 Bernard Camarena PA is PHCP. [facility] 15:29 Yvette Meyers MD is Attending Physician. jmm 15:44 Triage completed. bp 15:44 Arm band placed on. bp 16:12 US 1st Trimest Single 1st Fetus In Process Unspecified. EDMS 17:30 Shade Quintero MD is Referral Physician. [facility] 17:55 Fabiola Shaver, GABRIEL is Primary Nurse. ss 18:38 Patient has correct armband on for positive identification. ss 18:38 No provider procedures requiring assistance completed. IV discontinued, intact, ss bleeding controlled, No redness/swelling at site. Pressure dressing applied. Administered Medications: 17:55 Drug: NS 0.9% 1000 ml Route: IV; Rate: 1 bolus; Site: right antecubital; ss Outcome: 17:30 Discharge ordered by MD. [facility] 18:38 Discharged to home ambulatory. ss 18:38 Condition: good 18:38 Discharge instructions given to patient, significant other, Instructed on discharge instructions, follow up and referral plans. medication usage, Demonstrated understanding of instructions, follow-up care, medications, Prescriptions given X 1. 18:38 Patient left the ED. ss Signatures: Dispatcher [employer] EDAZ Bernard Camarena PA PA Fabiola Preston, RN RN Tomasz Yañez RN RN Azra Marcum [email or web address]
--- NOTE | 2022-05-11 17:31 | EDPHYS ---
Physician Documentation [facility] Name: Leilani De La Paz Age: 36 yrs Sex: Female : 1985 Arrival Date: 05/11/2022 Time: 15:26 Bed DIS4 Private MD: ED Physician Yvette Meyers HPI: 05/11 15:49 This 36 yrs old Female presents to ER via Ambulatory with complaints of Est 13 wks jmm gestation, pelvic cramping, vaginal bleeding. 15:49 Onset: The symptoms/episode began/occurred gradually, today. Associated signs and jmm symptoms: Pertinent negatives:. a3. This is a 36 year old female that presents ot the ED with vaginal bleeding beginning this morning. . 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 - Social history:: Smoking status: Patient denies any tobacco usage or history of. ROS: 15:49 Constitutional: Negative for fever, chills, and weight loss, Cardiovascular: Negative jmm for chest pain, palpitations, and edema, Respiratory: Negative for shortness of breath, cough, wheezing, and pleuritic chest pain. 15:49 : Positive for vaginal bleeding. 15:49 All other systems are negative. Exam: 15:49 Constitutional: This is a well developed, well nourished patient who is awake, alert, jmm and in no acute distress. Head/Face: atraumatic. Eyes: EOMI, no conjunctival erythema appreciated ENT: Moist Mucus Membranes Neck: Trachea midline, Supple Chest/axilla: Normal chest wall appearance and motion. Cardiovascular: Regular rate and rhythm. No edema appreciated Respiratory: Normal respirations, no respiratory distress appreciated Abdomen/GI: Non distended Back: Normal ROM Skin: General appearance color normal MS/ Extremity: Moves all extremities, no obvious deformities appreciated, no edema noted to the lower extremities Neuro: Awake and alert Psych: Behavior is normal, Mood is normal, Patient is cooperative and pleasant Vital Signs: 15:42 BP 104 / 63; Pulse 94; Resp 16; Temp 97.5; Pulse Ox 100% ; Weight 81.65 kg; Height 5 bp ft. 3 in. (160.02 cm); 15:42 Body Mass Index 31.89 (81.65 kg, 160.02 cm) bp MDM: 15:[address] [facility] 17:30 Data reviewed: vital signs, nurses notes. Counseling: I had a detailed discussion with [facility] the patient and/or guardian regarding: the historical points, exam findings, and any diagnostic results supporting the discharge/admit diagnosis, lab results, radiology results, the need for outpatient follow up, to return to the emergency department if symptoms worsen or persist or if there are any questions or concerns that arise at home. 05/11 15:47 Order name: Abo/rh Typing; Complete Time: 17:21 [facility] 05/11 15:47 Order name: Basic Metabolic Panel; Complete Time: 17:07 [facility] 05/11 15:47 Order name: CBC with Diff; Complete Time: 17:07 [facility] 05/11 17:06 Order name: Urine Dipstick-Ancillary; Complete Time: 17:07 [facility] 05/11 17:09 Order name: Urine --Ancillary (enter results); Complete Time: 17:29 [facility] 05/11 17:33 Order name: HCG-Quantitative; Complete Time: 18:06 [facility] 05/11 15:47 Order name: IV Saline Lock; Complete Time: 16:27 [facility] 05/11 15:47 Order name: Labs collected and sent; Complete Time: 16:27 [facility] 05/11 15:47 Order name: NPO; Complete Time: 16:56 [facility] 05/11 15:47 Order name: Urine Dipstick-Ancillary (obtain specimen); Complete Time: 17:05 [facility] 05/11 15:47 Order name: US 1st Trimest Single 1st Fetus; Complete Time: 16:32 [facility] Administered Medications: 17:55 Drug: NS 0.9% 1000 ml Route: IV; Rate: 1 bolus; Site: right antecubital; ss Disposition Summary: 05/11/22 17:30 Discharge Ordered Location: Home [facility] Condition: Stable [facility] Diagnosis - Threatened [facility] - UTI/ Urinary tract infection, site not specified [facility] Followup: [facility] - With: Private Physician - When: 2 - 3 days - Reason: Recheck today's complaints, Continuance of care, Repeat Beta-HCG (48 Hours), Re-evaluation by your physician Followup: [facility] - With: Shade Quintero MD - When: 2 - 3 days - Reason: Recheck today's complaints, Continuance of care, Re-evaluation by your physician Discharge Instructions: - Discharge Summary Sheet jm - Threatened Miscarriage jm - Vaginal Bleeding During , First Trimester [facility] - and Urinary Tract Infection [facility] Forms: - Medication Reconciliation Form [facility] - Thank You Letter [facility] - Antibiotic Education [facility] - Prescription Opioid Use [facility] Prescriptions: - Cephalexin 500 mg Oral Capsule - take 1 capsule by ORAL route every 8 hours for 10 days; 30 capsule; Refills: 0, [facility] Product Selection Permitted Addendum: 05/15/2022 18:28 STAFF ATTESTATION STATEMENT: I was immediately available onsite in the emergency s d2 department for consultation in the care of this patient. I did not see or examine this patient. Yvette Meyers MD. Signatures: Dispatcher [employer] EDMS Bernard Camarena PA PA jmm Smirch, Shelby, GABRIEL RN Tomasz Delgado RN RN Yvette Wang MD MD sd2
[2022-05-11] MEDS ORDERED: NA CHLORIDE 0.9% 1,000 ML ONE (17:49)
[2022-05-11 19:34] VITALS: BP 104/63; TEMP 97.5; O2SAT 100
== END 2022-05-11 18:38 | disposition home or self-care (01) ==
LOC: ER 15:24
DX: O20.0 Threatened abortion (principal); O23.41 Unspecified infection of urinary tract in pregnancy, first trimester; N39.0 Urinary tract infection, site not specified; Z3A.13 13 weeks gestation of pregnancy
CPT/HCPCS: 85025; 80048; 36415; 86900; 81025; 86901; 84702; 81003; 76801; 99283; J7030